=== PATIENT | male | born 1990 ===

== ENCOUNTER 2017-03-30 12:52 | Inpatient (IN) | payer MEDICAID, OTHER ==
[2017-03-30 12:52] VITALS: BMI 24.3
[2017-03-30 12:57] VITALS: BP 143/73; RESP 16; TEMP 98.6; O2SAT 99
--- NOTE | 2017-03-30 14:44 | ED PDOC ---
HPI: Psych/Substance Abuse Time Seen by Provider: 03/30/17 12:57 Chief Complaint (Nursing): Psychiatric Evaluation Chief Complaint (Provider): Hearing voices - Sent by PCP History Per: Patient History/Exam Limitations: no limitations Onset/Duration Of Symptoms: Days Current Symptoms Are (Timing): Still Present Modifying Factor(s): Alcohol, Marijuana, Cocaine, Other (MDMA) Additional Complaint(s): Pt states he was having trouble sleeping so he went to his PCP who sent him to Er for evaluation. PT reports hearing voices since taking adderall which he states he takes more than prescribed. Past Medical History Reviewed: Historical Data, Nursing Documentation, Vital Signs Vital Signs: Last Vital Signs Temp 98.6 F 03/30/17 12:54 Pulse 65 03/30/17 12:54 Resp 16 03/30/17 12:54 BP 143/73 03/30/17 12:54 Pulse Ox 99 03/30/17 12:54 - Medical History PMH: Anxiety - Surgical History Surgical History: No Surg Hx - Family History Family History: States: Unknown Family Hx, Hypertension - Living Arrangements Living Arrangements: With Family - Social History Current smoker - smoking cessation education provided: No Alcohol: None Drugs: Denies - Immunization History Hx Tetanus Toxoid Vaccination: Yes Hx Influenza Vaccination: No Hx Pneumococcal Vaccination: No - Home Medications Home Medications: Ambulatory Orders Medication Instructions Recorded Dextroamphetamine/Amphetamine 20 mg PO DAILY 03/30/17 [Adderall 20 mg Tablet] - Allergies Allergies/Adverse Reactions: Allergies Allergy/AdvReac Type Severity Reaction Status Date / Time No Known Allergies Allergy Verified 03/30/17 12:54 Review of Systems ROS Statement: Except As Marked, All Systems Reviewed And Found Negative Psych: Positive for: Psychosis Physical Exam - Reviewed Nursing Documentation Reviewed: Yes Vital Signs Reviewed: Yes - Physical Exam Appears: Positive for: Well, Non-toxic, No Acute Distress Head Exam: Positive for: ATRAUMATIC, NORMAL INSPECTION, NORMOCEPHALIC Skin: Positive for: Normal Color, Warm, DRY Eye Exam: Positive for: Normal appearance ENT: Positive for: Normal ENT Inspection Neck: Positive for: Normal, Painless ROM Cardiovascular/Chest: Positive for: Regular Rate, Rhythm Respiratory: Positive for: CNT, Normal Breath Sounds Gastrointestinal/Abdominal: Positive for: Normal Exam, Bowel Sounds, Soft Back: Positive for: Normal Inspection Extremity: Positive for: Normal ROM Neurologic/Psych: Positive for: Alert, Oriented - Laboratory Results Result Diagrams: 03/30/17 15:40 03/30/17 15:40 - ECG O2 Sat by Pulse Oximetry: 99 Medical Decision Making Medical Decision Making: Labs normal. (+) cocaine Normal urine. Pt cooperative in ER. Disposition - Clinical Impression Clinical Impression: ADHD (attention deficit hyperactivity disorder) - Patient ED Disposition Is Patient to be Admitted: Yes - Disposition Disposition Time: 17:35 Condition: GOOD - Pt Status Changed To: Hospital Disposition Of: Inpatient - Admit Certification Admit to Inpatient:: After my assessment, the patient will require hospitalization for at least two midnights. This is because of the severity of symptoms shown, intensity of services needed, and/or the medical risk in this patient being treated as an outpatient. - POA Present On Arrival: None
[2017-03-30 16:02] LABS: MEAN CELL VOLUME 89.5 fl (80.0-94.0); MEAN CORPUSCULAR HEMOGLOBIN 29.6 pg (27.0-31.0); MEAN CORPUSCULAR HGB CONC 33.1 g/dL (33.0-37.0); RED CELL DISTRIBUTION WIDTH 13.4 % (11.5-14.5)
[2017-03-30 16:13] LABS: RBC URINE 1 /hpf (0-3); URINE BILIRUBIN NEGATIVE (NEGATIVE); URINE BLOOD NEGATIVE (NEGATIVE); URINE COLOR YELLOW (YELLOW); URINE GLUCOSE (UA) NEG (Normal); URINE KETONE NEGATIVE (NEGATIVE); URINE LEUKOCYTE ESTERASE NEG Leu/uL (Negative); URINE PROTEIN NEGATIVE (NEGATIVE); URINE UROBILINOGEN 0.2-1.0 mg/dL (0.2-1.0); WBC URINE 1 /hpf (0-5)
[2017-03-30 16:17] LABS: ALB/GLOB RATIO 1.5 (1.0-2.1); ALCOHOL SERUM < 10 mg/dl (0-10); ALKALINE PHOSPHATASE 64 U/L (38-126); ALT/SGPT 50 U/L (21-72); AST/SGOT 33 U/L (17-59); BILIRUBIN,TOTAL 0.8 mg/dl (0.2-1.3); BLOOD UREA NITROGEN 13 mg/dl (9-20); CARBON DIOXIDE 29 mmol/L (22-30); CHLORIDE 99 mmol/L (98-107); GFR AFRICAN-AMERICAN > 60; GLUCOSE,RANDOM 90 mg/dL (75-110); POTASSIUM 3.8 MMOL/L (3.6-5.0); SODIUM 141 mmol/l (132-148); TOTAL PROTEIN 8.6 G/DL (6.3-8.2)
[2017-03-30] MEDS ORDERED: DiphenhydrAMINE 50 mg/ml Inj IM PRN (20:01)
[2017-03-30] MEDS ORDERED: Magnesium Hydroxide Susp 30 ml UD PO PRN (20:01)
[2017-03-30] MEDS ORDERED: Alum-Mag Hydrox-Simethicone Susp (30 mL) PO PRN (20:01)
[2017-03-30 20:45] VITALS: PULSE 76
[2017-03-31 07:09] LABS: T4 6.83 ug/dl (5.5-11.0)
[2017-03-31 07:23] LABS: THYROID STIMULATING HORMONE 1.35 mIU/ML (0.46-4.68)
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
== END 2017-03-31 15:03 | disposition home or self-care (01) | DRG 748 ==
LOC: H.ER 12:52 → H.ERHOLD 15:52 → H.PSYCH 18:00
PROVIDERS: ADMIT Psychiatry & Neurology Psychiatry; ATTEND Psychiatry & Neurology Psychiatry
PROC: HZ59ZZZ Individual Psychotherapy for Substance Abuse Treatment, Supportive (ICD-10-PCS; principal; 2017-03-30)
DX: F14.10 Cocaine abuse, uncomplicated (principal); F39 Unspecified mood [affective] disorder; F32.9 Major depressive disorder, single episode, unspecified; F15.10 Other stimulant abuse, uncomplicated; F90.9 Attention-deficit hyperactivity disorder, unspecified type; F17.210 Nicotine dependence, cigarettes, uncomplicated; F29 Unspecified psychosis not due to a substance or known physiological condition

== ENCOUNTER 2019-02-05 22:24 | Inpatient (IN) | payer MEDICAID, OTHER ==
[2019-02-05 22:29] VITALS: BMI 29.0
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
[2019-02-05 23:20] LABS: BARBITURATES, UR NEGATIVE (NEGATIVE); BENZODIAZEPINES, UR NEGATIVE (NEGATIVE); OPIATES, UR NEGATIVE (NEGATIVE); PHENCYCLIDINE, UR NEGATIVE (NEGATIVE)
[2019-02-05 23:25] LABS: URINE BILIRUBIN NEGATIVE (NEGATIVE); URINE BLOOD NEGATIVE (NEGATIVE); URINE CLARITY CLEAR (Clear); URINE COLOR STRAW (YELLOW); URINE GLUCOSE (UA) NEG (NEGATIVE); URINE LEUKOCYTE ESTERASE NEG Leu/uL (Negative); URINE PROTEIN NEGATIVE (NEGATIVE); URINE UROBILINOGEN 0.2-1.0 mg/dL (0.2-1.0)
--- NOTE | 2019-02-06 01:58 | ED PDOC ---
- Laboratory Results Lab Results: Urine Color Straw (YELLOW) 02/05/19 23:02 Urine Clarity Clear (Clear) 02/05/19 23:02 Urine pH 6.0 (5.0-8.0) 02/05/19 23:02 Ur Specific [place] < 1.005 (1.003-1.030) 02/05/19 23:02 Urine Protein Negative mg/dL (NEGATIVE) 02/05/19 23:02 Urine Glucose (UA) Neg mg/dL (NEGATIVE) 02/05/19 23:02 Urine Ketones Negative mg/dL (NEGATIVE) 02/05/19 23:02 Urine Blood Negative (NEGATIVE) 02/05/19 23:02 Urine Nitrate Negative (NEGATIVE) 02/05/19 23:02 Urine Bilirubin Negative (NEGATIVE) 02/05/19 23:02 Urine Urobilinogen 0.2-1.0 mg/dL (0.2-1.0) 02/05/19 23:02 Ur Leukocyte Esterase Neg [place]/uL (Negative) 02/05/19 23:02 Urine RBC (Auto) < 1 /hpf (0-3) 02/05/19 23:02 Urine Microscopic WBC < 1 /hpf (0-5) 02/05/19 23:02 - ECG O2 Sat by Pulse Oximetry: 100 - Progress ED Course And Treament: 0000 Signed out to me pending sobriety 0100 Sleeping comfortably. No distress. Easily arousable but somnolent. Lungs clear b/l. Abd soft and non-tender. Head atraumatic, normocephalic. 0320 No distress. No acute changes. Easily arousable but still sleepy. Vital signs normal on athletic monitor. 0615 AAOx3. Denies SI/HI, hallucinations. Gait steady, unassisted. No slurred speech. Offers no complaints. States he does see a therapist regularly but is not on meds. <Gio Bose E - Last Filed: 02/06/19 06:29> - Laboratory Results Lab Results: Urine Color Straw (YELLOW) 02/05/19 23:02 Urine Clarity Clear (Clear) 02/05/19 23:02 Urine pH 6.0 (5.0-8.0) 02/05/19 23:02 Ur Specific [place] < 1.005 (1.003-1.030) 02/05/19 23:02 Urine Protein Negative mg/dL (NEGATIVE) 02/05/19 23:02 Urine Glucose (UA) Neg mg/dL (NEGATIVE) 02/05/19 23:02 Urine Ketones Negative mg/dL (NEGATIVE) 02/05/19 23:02 Urine Blood Negative (NEGATIVE) 02/05/19 23:02 Urine Nitrate Negative (NEGATIVE) 02/05/19 23:02 Urine Bilirubin Negative (NEGATIVE) 02/05/19 23:02 Urine Urobilinogen 0.2-1.0 mg/dL (0.2-1.0) 02/05/19 23:02 Ur Leukocyte Esterase Neg [place]/uL (Negative) 02/05/19 23:02 Urine RBC (Auto) < 1 /hpf (0-3) 02/05/19 23:02 Urine Microscopic WBC < 1 /hpf (0-5) 02/05/19 23:02 <Divina Kapoor Y - Last Filed: 02/06/19 07:01> Medical Decision Making Medical Decision Makin:00 Patient care endorsed to Dr. Romero pending crisis evaluation. <Divina Kapoor Y - Last Filed: 02/06/19 07:01> Disposition - POA Present On Arrival: None - Disposition Disposition: Transfer of Care (Dr. Kapoor continued care at the end of my shift pending crisis eval.) Disposition Time: 06:10 <Gio Bose E - Last Filed: 02/06/19 06:29> <Divina Kapoor Y - Last Filed: 02/06/19 07:01> - Clinical Impression Clinical Impression: Alcohol intoxication - Disposition Condition: IMPROVED Forms: [facility] (Filipino)
[2019-02-06 06:55] VITALS: O2SAT 98
--- NOTE | 2019-02-06 07:14 | ED PDOC ---
- Laboratory Results Lab Results: Urine Color Straw (YELLOW) 02/05/19 23:02 Urine Clarity Clear (Clear) 02/05/19 23:02 Urine pH 6.0 (5.0-8.0) 02/05/19 23:02 Ur Specific [place] < 1.005 (1.003-1.030) 02/05/19 23:02 Urine Protein Negative mg/dL (NEGATIVE) 02/05/19 23:02 Urine Glucose (UA) Neg mg/dL (NEGATIVE) 02/05/19 23:02 Urine Ketones Negative mg/dL (NEGATIVE) 02/05/19 23:02 Urine Blood Negative (NEGATIVE) 02/05/19 23:02 Urine Nitrate Negative (NEGATIVE) 02/05/19 23: Urine Bilirubin Negative (NEGATIVE) 02/05/19 23:02 Urine Urobilinogen 0.2-1.0 mg/dL (0.2-1.0) 02/05/19 23:02 Ur Leukocyte Esterase Neg [place]/uL (Negative) 02/05/19 23:02 Urine RBC (Auto) < 1 /hpf (0-3) 02/05/19 23:02 Urine Microscopic WBC < 1 /hpf (0-5) 02/05/19 23:02 - ECG O2 Sat by Pulse Oximetry: 98 Pulse Ox Interpretation: Normal Medical Decision Making Medical Decision Makin:00 Patient was signed out to me from Dr. Divina Kapoor at this time, pending crisis evaluation and final disposition. At sign out, I reassessed patient at bedside, who is resting comfortably in stretcher. Vital signs stable. 9:20 Discussed with harm reduction worker, patient will be admitted under Dr. Khan for depression. Scribe Attestation: Documented by Chrissie Bosch, acting as a scribe for Shantanu Romero MD. Provider Scribe Attestation: All medical record entries made by the Scribe were at my direction and personally dictated by me. I have reviewed the chart and agree that the record accurately reflects my personal performance of the history, physical exam, medical decision making, and the department course for this patient. I have also personally directed, reviewed, and agree with the discharge instructions and disposition. Disposition Counseled Patient/Family Regarding: Diagnosis - Clinical Impression Clinical Impression: Alcohol intoxication - POA Present On Arrival: None - Disposition Disposition: Admitted as In-Patient Disposition Time: 09:20
[2019-02-06] MEDS ORDERED: DiphenhydrAMINE 50 mg/ml Inj IM PRN (12:09)
[2019-02-06] MEDS ORDERED: Magnesium Hydroxide Susp 30 ml UD PO PRN (12:09)
[2019-02-06] MEDS ORDERED: Alum-Mag Hydrox-Simethicone Susp (30 mL) PO PRN (12:09)
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
[2019-02-07 10:06] VITALS: RESP 18
--- NOTE | 2019-02-07 15:55 | PCM.PYCHPN ---
Psychiatric Progress Note - Psychiatric Progress Note Patient seen today, length of contact: pt evaluated discussed with team chart reviewed Patient Chief Complaint: I need to get help with the substance use Problems Identified/Issues Discussed: pt evaluated seen in bed, reported continues to feel down , discussed the effect of cocaine and alcohol withdrawal on the current mental status , motivational therapy provided, pt denied side effects of abilify discussed increasing dose, encouraged pt to attend groups. pt denied active thoughts of self harm, denied perceptual disturbances Medical Problems: history of one psychiatric hospitalization two years ago pt currently in therapy DSM 5 Symptoms Update: bipolar disorder unspecified cocaine abuse alcohol abuse Medication Change: Yes (taper ativan ) Medical Record Reviewed: Yes Mental Status Examination - Cognitive Function Orientation: Person, Place, Situation Attention: WNL Concentration: WNL Association: WNL Fund of Knowledge: WNL Decription of patient's judgement and insights: partial insight poor judgment - Mood Mood: Anxious - Affect Affect: Constricted - Speech Speech: Appropriate - Formal Thought Process Formal Thought Process: Circumstantial - Suicidal Ideation Suicidal Ideation: No - Homicidal Ideation Homicidal Ideation: No Goal/Treatment Plan - Goal/Treatment Plan Need for Continued Stay: Severe depression anxiety, Discharge may exacerbated symptoms Progress Toward Problem(s) and Goals/Treatment Plan: down taper ativan protocol/ monitor for symptoms and signs of alcohol withdrawal neurontin 100mg tid increase abilify 10mg daily for mood stabilization trazodone 100mg qhs motivational, group and supportive therapy
[2019-02-08 09:33] LABS: EOS # 0.2 K/uL (0.0-0.7); EOS % 3.8 % (0.0-4.0); HEMOGLOBIN 16.1 g/dL (12.0-18.0); LYMPH # 1.4 K/uL (1.0-4.3); LYMPH % 29.9 % (20.0-40.0); MEAN CELL VOLUME 88.9 fl (80.0-94.0); MEAN CORPUSCULAR HEMOGLOBIN 29.8 pg (27.0-31.0); MEAN CORPUSCULAR HGB CONC 33.5 g/dL (33.0-37.0); MEAN PLATELET VOLUME 9.9 fl (7.2-11.7); MONO # 0.5 K/uL (0.0-0.8); MONO % 10.4 % (0.0-10.0); NEUT # 2.5 K/uL (1.8-7.0); NEUT % 54.9 % (50.0-75.0); NRBC % 0.1 % (0.0-0.0); RBC 5.4 Mil/uL (4.40-5.90); RED CELL DISTRIBUTION WIDTH 13.1 % (11.5-14.5); WHITE BLOOD COUNT 4.5 K/uL (4.8-10.8)
[2019-02-08 09:50] LABS: ALB/GLOB RATIO 1.3 (1.0-2.1); ALBUMIN 5.1 g/dL (3.5-5.0); ALT/SGPT 43 U/L (21-72); AST/SGOT 30 U/L (17-59); BLOOD UREA NITROGEN 18 mg/dl (9-20); CALCIUM 10.3 mg/dL (8.4-10.2); GFR NON-AFRICAN AMERICAN > 60
--- NOTE | 2019-02-08 10:51 | CARD ---
APPROVED REPORT Date of service: 02/08/2019 EKG Measurement Heart [id number] <Conclusion> Normal sinus rhythm with sinus arrhythmia Left axis deviation Abnormal ECG
--- NOTE | 2019-02-08 14:33 | PCM.PYCHPN ---
Psychiatric Progress Note - Psychiatric Progress Note Patient seen today, length of contact: pt evaluated discussed with team chart reviewed Patient Chief Complaint: I get impulsive Problems Identified/Issues Discussed: pt evaluated with treatment team, reported feeling down for loosing his job, motivational therapy provided , discussed with pt the effect of substance use on his mental status and social situation, discussed possible options of after care for help with substance use discussed with pt benefit of abilify for mood stabilization and to help with impulse control, educated patient about importance of avoiding triggers to prevent relapse pt denied any current active thoughts of self harm, denied perceptual disturbances Medical Problems: history of one psychiatric hospitalization two years ago pt currently in therapy DSM 5 Symptoms Update: substance induced mood disorder cannabis abuse alcohol abuse cocaine abuse rule out bipolar disorder Medication Change: Yes (stop ativan) Medical Record Reviewed: Yes Mental Status Examination - Cognitive Function Orientation: Person, Place, Situation Attention: WNL Concentration: WNL Association: WNL Fund of Knowledge: WN Decription of patient's judgement and insights: partial insight poor judgment - Mood Mood: Anxious - Affect Affect: Constricted - Speech Speech: Appropriate - Formal Thought Process Formal Thought Process: Circumstantial - Suicidal Ideation Suicidal Ideation: No - Homicidal Ideation Homicidal Ideation: No Goal/Treatment Plan - Goal/Treatment Plan Need for Continued Stay: Severe depression anxiety, Discharge may exacerbated symptoms Progress Toward Problem(s) and Goals/Treatment Plan: discontinue ativan neurontin 200mg tid abilify 10mg daily for mood stabilization trazodone 100mg qhs motivational, group and supportive therapy
[2019-02-08 17:17] VITALS: TEMP 97.5
[2019-02-08 22:08] VITALS: BP 130/86; PULSE 62
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
== END 2019-02-09 14:20 | disposition home or self-care (01) | DRG 748 ==
LOC: H.ER 22:24 → H.ERHOLD 02-06 09:20 → H.PSYCH 02-06 11:55
PROVIDERS: ADMIT Psychiatry & Neurology Psychiatry; ATTEND Psychiatry & Neurology Psychiatry
PROC: HZ52ZZZ Individual Psychotherapy for Substance Abuse Treatment, Cognitive-Behavioral (ICD-10-PCS; principal; 2019-02-06)
PROC: GZHZZZZ Group Psychotherapy (ICD-10-PCS; 2019-02-06)
PROC: GZ58ZZZ Individual Psychotherapy, Cognitive-Behavioral (ICD-10-PCS; 2019-02-06)
DX: F19.94 Other psychoactive substance use, unspecified with psychoactive substance-induced mood disorder (principal); F10.129 Alcohol abuse with intoxication, unspecified; Y90.8 Blood alcohol level of 240 mg/100 ml or more; F12.10 Cannabis abuse, uncomplicated; F14.10 Cocaine abuse, uncomplicated; F31.9 Bipolar disorder, unspecified; R45.851 Suicidal ideations; F41.9 Anxiety disorder, unspecified; F17.210 Nicotine dependence, cigarettes, uncomplicated